=== PATIENT | male | born 1945 | race Caucasian/White ===

== ENCOUNTER → 2016-07-18 | Outpatient (CLI) | payer OTHER | LOC: MMPC 11:11 | PROVIDERS: ATTEND Internal Medicine | DX: E11.9 Type 2 diabetes mellitus without complications (principal); E78.5 Hyperlipidemia, unspecified; I10 Essential (primary) hypertension; L73.2 Hidradenitis suppurativa; E66.01 Morbid (severe) obesity due to excess calories; F17.210 Nicotine dependence, cigarettes, uncomplicated | CPT/HCPCS: 99213; G0463 ==

== ENCOUNTER → 2016-08-07 | Outpatient (CLI) | payer OTHER | LOC: MMPC 10:00 | PROVIDERS: ATTEND Orthopaedic Surgery | DX: M75.121 Complete rotator cuff tear or rupture of right shoulder, not specified as traumatic (principal); M75.41 Impingement syndrome of right shoulder; M19.011 Primary osteoarthritis, right shoulder; M75.21 Bicipital tendinitis, right shoulder | CPT/HCPCS: 99213; G0463 ==

== ENCOUNTER → 2016-10-05 | Outpatient (CLI) | payer OTHER | LOC: MMPC 10:00 | PROVIDERS: ATTEND Podiatrist Foot & Ankle Surgery | DX: E11.40 Type 2 diabetes mellitus with diabetic neuropathy, unspecified (principal); L60.3 Nail dystrophy; M77.41 Metatarsalgia, right foot; M77.42 Metatarsalgia, left foot; Q66.7 Congenital pes cavus; L84 Corns and callosities; E66.09 Other obesity due to excess calories; F17.210 Nicotine dependence, cigarettes, uncomplicated | CPT/HCPCS: 11055 ×2; 99212; G0463 ==

== ENCOUNTER → 2016-10-12 | Outpatient (CLI) | payer OTHER | LOC: MMPC 10:00 | PROVIDERS: ATTEND Orthopaedic Surgery | DX: M19.011 Primary osteoarthritis, right shoulder (principal); M75.21 Bicipital tendinitis, right shoulder; M75.121 Complete rotator cuff tear or rupture of right shoulder, not specified as traumatic; M75.41 Impingement syndrome of right shoulder | CPT/HCPCS: 99214; G0463 ==

== ENCOUNTER → 2016-10-16 | Outpatient (CLI) | payer OTHER | LOC: MMPC 11:11 | PROVIDERS: ATTEND Internal Medicine | DX: L73.2 Hidradenitis suppurativa (principal); E11.9 Type 2 diabetes mellitus without complications; I10 Essential (primary) hypertension; J44.9 Chronic obstructive pulmonary disease, unspecified; E66.01 Morbid (severe) obesity due to excess calories; M19.011 Primary osteoarthritis, right shoulder; R09.89 Other specified symptoms and signs involving the circulatory and respiratory systems | CPT/HCPCS: 99214; G0463 ==

== ENCOUNTER → 2016-10-30 | Outpatient (CLI) | payer OTHER ==
[2016-10-30 12:37] LABS: BASOPHILS # (AUTO) 0.17 10*3/UL; BASOPHILS % (AUTO) 1.3 % (0-1); EOSINOPHILS # (AUTO) 0.36 10*3/UL; EOSINOPHILS % (AUTO) 2.8 % (0-8); HEMATOCRIT 40.6 % (42.0-52.0); HEMOGLOBIN 13.5 g/dL (14.0-18.0); LYMPHOCYTES # (AUTO) 3.27 10*3/uL; MEAN CORPUSCULAR HEMOGLOBIN 29.6 PG (27-31); MEAN CORPUSCULAR HGB CONC 33.3 g/dL (33-37); MONOCYTES # (AUTO) 0.87 10*3/UL (0.3-0.8); MONOCYTES % (AUTO) 6.7 % (5-15); NEUTROPHILS # (AUTO) 8.19 10*3/UL; NEUTROPHILS % (AUTO) 63.6 % (50-80); RED BLOOD COUNT 4.56 10^6/uL (4.70-6.10)
[2016-10-30 12:44] LABS: PLATELET MORPHOLOGY COMMENT NORMAL MORPHOLOGY (NORM); RBC MORPHOLOGY COMMENT NORMAL MORPHOLOGY (NORM); WBC MORPHOLOGY COMMENT NORMAL MORPHOLOGY (NORM)
[2016-10-30 12:45] LABS: BILIRUBIN,URINE NEGATIVE (NEG); CLARITY,URINE CLEAR (CLEAR); COLOR,URINE YELLOW; GLUCOSE, URINE (UA) NEGATIVE (NEG); NITRATE,URINE NEGATIVE (NEG); OCCULT BLOOD,URINE NEGATIVE (NEG); PH,URINE 5.5 (5.0-8.5); PROTEIN,URINE NEGATIVE (NEG); UROBILINOGEN,URINE 0.2 mg/dL (0.2)
[2016-10-30 12:48] LABS: BLOOD UREA NITROGEN 16 mg/dL (7-22); BUN/CREATININE RATIO 17.77 (6-20); CALCIUM 9.3 mg/dL (8.7-10.7); EST GLOMERULAR FILTRATION > 60 (>60 ml/min/1.73m(2)); SERUM ALBUMIN 4.1 g/dL (3.5-4.8)
[2016-10-30 12:52] LABS: RBC,URINE 0-2 /hpf; URINE SAMPLE TYPE VOIDED SPECIMEN
[2016-10-30 12:52] LABS: HEMOGLOBIN A1C 5.51 % (4.2-6.0)
[2016-10-30 12:53] LABS: SQUAMOUS EPITHELIAL CELL,UR FEW; WBC,URINE 0-2
== END ==
LOC: MOB LAB 10:40
PROVIDERS: ATTEND Internal Medicine
DX: E11.9 Type 2 diabetes mellitus without complications (principal); J44.9 Chronic obstructive pulmonary disease, unspecified; I10 Essential (primary) hypertension; L73.2 Hidradenitis suppurativa; F17.200 Nicotine dependence, unspecified, uncomplicated
CPT/HCPCS: 36415; 80053; 81001; 83036; 85025

== ENCOUNTER → 2016-11-16 | Outpatient (CLI) | payer OTHER | LOC: MOB LAB 09:21 | PROVIDERS: ATTEND Internal Medicine | DX: D64.9 Anemia, unspecified (principal); L73.2 Hidradenitis suppurativa | CPT/HCPCS: 36415; 82728; 83540; 83550 ==

== ENCOUNTER → 2016-12-06 | Outpatient (CLI) | payer OTHER | LOC: MMPC 10:00 | PROVIDERS: ATTEND Podiatrist Foot & Ankle Surgery | DX: L84 Corns and callosities (principal); Q66.7 Congenital pes cavus; E66.8 Other obesity; E11.9 Type 2 diabetes mellitus without complications; F17.210 Nicotine dependence, cigarettes, uncomplicated | CPT/HCPCS: 11056 ×2; G0463 ==

== ENCOUNTER 2016-12-12 22:44 | Emergency (ER) | payer OTHER ==
[2016-12-12] MEDS ORDERED: ASPIRIN 81 MG (BABY) CHEWABLE TABLET PO ONE (22:57)
[2016-12-12] MEDS ORDERED: NORMAL SALINE 10 ML SYRINGE FLUSH IVP PRN (22:57)
--- NOTE | 2016-12-12 22:59 | EKG ---
[address] [address] Measurements Intervals [place] Rate: 80 P: 53 RI: 150 QRS: 99 QRSD: 110 T: 62 QT: 375 QTc: 411 Interpretive Statements SINUS RHYTHM BORDERLINE RIGHT AXIS DEVIATION [QRS AXIS > 90] INTERPRETATION BASED ON A DEFAULT AGE OF 40 YEARS No prior study available for comparison and no acute ST-T changes to suggest acute injury. Electronically Signed On 12-13-16 08:04:02 MDT by Daniele Bain MD [email or web address]
[2016-12-12 23:07] LABS: BASOPHILS # (AUTO) 0.18 10*3/UL; BASOPHILS % (AUTO) 1.1 % (0-1); EOSINOPHILS # (AUTO) 0.39 10*3/UL; EOSINOPHILS % (AUTO) 2.5 % (0-8); HEMATOCRIT 35.5 % (42.0-52.0); HEMOGLOBIN 11.8 g/dL (14.0-18.0); LYMPHOCYTES # (AUTO) 3.29 10*3/uL; MEAN CORPUSCULAR HEMOGLOBIN 30.1 PG (27-31); MEAN CORPUSCULAR HGB CONC 33.2 g/dL (33-37); MEAN CORPUSCULAR VOLUME 90.6 FL (80-90); MONOCYTES # (AUTO) 1.07 10*3/UL (0.3-0.8); MONOCYTES % (AUTO) 6.8 % (5-15); NEUTROPHILS # (AUTO) 10.72 10*3/UL; NEUTROPHILS % (AUTO) 68.3 % (50-80); RED BLOOD COUNT 3.92 10^6/uL (4.70-6.10)
[2016-12-12 23:11] LABS: PLATELET MORPHOLOGY COMMENT NORMAL MORPHOLOGY (NORM); RBC MORPHOLOGY COMMENT NORMAL MORPHOLOGY (NORM); WBC MORPHOLOGY COMMENT NORMAL MORPHOLOGY (NORM)
[2016-12-12 23:13] LABS: BLOOD UREA NITROGEN 13 mg/dL (7-22); BUN/CREATININE RATIO 11.81 (6-20); CALCIUM 9.3 mg/dL (8.7-10.7); EST GLOMERULAR FILTRATION > 60 (>60 ml/min/1.73m(2)); LIPASE 61 IU/L (23-300); MAGNESIUM 1.7 mg/dL (1.6-2.4); SERUM ALBUMIN 3.8 g/dL (3.5-4.8)
[2016-12-12 23:25] LABS: CREATINE KINASE MB 0.37 NG/ML (0.00-5.00); TROPONIN I < 0.012 ng/mL (< 0.040)
[2016-12-12 23:33] VITALS: TEMP 97.2
--- NOTE | 2016-12-12 23:44 | PDOC ---
Chest Pain HPI - General Chief Complaint: Chest Pain Stated Complaint: CHEST PAIN BELOW LEFT BRST SINCE 1300 Date Seen by Provider: 12/12/16 Time Seen by Provider: 22:45 Source: Patient Exam Limitations: POSITIVE: No limitations Treatment Prior to Arrival: REPORTS: None Nurse's Notes Reviewed & Considered: Yes - History of Present Illness Initial Comments: The patient is a 71-year-old male who presents to the emergency department with left-sided chest pain. He states that he woke up from a nap earlier this afternoon and was experiencing pain in his left lower chest. This pain does radiate through to his back on the left side. His pain is not worsened with taking a deep breath and he denies any increase shortness of breath, palpitation , diaphoresis, lightheadedness or any other associated symptoms. He reports that he had cardiac workup including cardiac catheterization approximately [address] Perkins in [place] at which time his vessels were clear. He does however have a history of hypertension and diabetes. He denies any recent illness. 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 He sees infectious disease for this and is chronically on antibiotics. He denies any prior history of blood clots. - Patient Home Medications Home Medications: Home Medications Blood Sugar Diagnostic [Freestyle Lite Strips] 1 each IN 2-3XD #100 strip Doxycycline Hyclate 1 cap PO DAILY cap 04/25/16 Hydrocodone/Acetaminophen [Lortab 5-325 Mg Tablet] 1 tab PO QHS #30 tab Epinephrine [Epipen] 0.3 mg IM PRN PRN #2 each 07/18/16 Aspirin 1 tab PO DAILY tab 10/12/16 Ibuprofen 1 tab PO TID PRN #90 tab 10/12/16 Citalopram Hydrobromide [Citalopram Hbr] 1 tab PO DAILY #90 tab 10/30/16 Duloxetine HCl 1 tab-cap PO QAM #90 cap 10/30/16 Duloxetine HCl [Cymbalta] 1 tab-cap PO QHS #90 cap 10/30/16 Exenatide Microspheres [Bydureon Pen] 1 each SUBCUT WEEKLY #12 unit 10/30/16 Gabapentin 1 tab-cap PO QHS #90 cap 10/30/16 Glipizide 1 tab-cap PO QD #90 tab 10/30/16 Lamotrigine 1 tab-cap ORAL QD #90 tab 10/30/16 Linagliptin/Metformin HCl [Jentadueto 2.5 Mg-1000 Mg Tab] 1 tab-cap PO BID #180 tab 10/30/16 Lisinopril 1 tab-cap ORAL QD #90 tab 10/30/16 Metoprolol Tartrate 1 tab-cap PO DAILY #90 tab 10/30/16 - Patient Allergies Allergies/Adverse Reactions: Allergies Allergy/AdvReac Type Severity Reaction Status Date / Time BEE STING Allergy Intermediate ANAPHLAXIS Uncoded 12/12/16 22:54 Past Medical History - heen HEENT History: Denies History Cardiovascular History: Hypertension, CHF, Hyperlipidemia Respiratory History: Asthma Additional Respiratory History: NO PROBLEMS FOR 2-3 YEARS Gastrointestinal History: GERD, Hiatal Hernia Genitourinary History: Denies History Endocrine History: Type 2 Diabetes (oral) Musculoskeletal History: Arthritis Additional Musculoskeletal History: ONGOING PROBLEM WITH SKIN INFECTIONS AT GROIN AND AXILLA. SEEN BY Candis MOORE. WAS SEEN IN THE OFFICE ON 10/12/[address] PARISH AND AXILLA AT THIS TIME IS CLEARED UP WITH NO SIGNS OF INFECTION. DESPITE DR BEDOLLA NOTE FROM 10/16/16 STATING SHE DOESNT FEEL PATIENT SHOULD PROCEED WITH SX DUE TO THE ACTIVE INFECTION IN GROIN AREA, DR PARISH STATED HE WAS COMFORTABLE PROCEEDING SINCE AXILLA WAS CLEAR AND PATIENT BEING ON ORAL ABX. SB Neurological History: Other (please comment) Additional Neurological History: HAS MYASTHENIA GRAVIS Blood Disorders: Denies History Psychiatric History: Depression, Anxiety Disorders History of Sexually Transmitted Diseases: No Male Reproductive History: Denies History Cancer History: Other (please comment) Cancer Treatment / Date(s) of Treatment: 2003 In Past Year Been Physically Harmed or Verbally Threatened: No History of MDRO: No History of Other Communicable Diseases: No Tobacco Use: Current Every Day Smoker Alcohol Use: None Substance Use Type: None Previous Surgical History: Yes Type / Date of Surgery: TONSILLECTOMY/ SKIN CA/ RIGHT ANKLE X 2/ MULTIPLE CYSTS EXCISED FROM GROIN FRANK AREA/ RECTAL CA EXCISED/ CORONARY ANGIOGRAM Anesthesia Reactions: No Significant Family History: No pertinent family hx Past Medical History Reviewed: Reviewed - No Changes ROS - Limitations ROS Limitations: No Limitations Constitution: DENIES: Chills, Fever Cardiovascular: REPORTS: Chest Pain, Blood Pressure Problem. DENIES: Heart Racing, Heart Palpitations, Edema Respiratory: DENIES: Shortness Of Breath Neurological: REPORTS: Denies Neuro Symptoms Gastrointestinal: REPORTS: Denies GI Symptoms Endocrine: REPORTS: Fatigue (For about a month) Musculoskeletal: DENIES: Calf Pain Eyes: REPORTS: Denies Symptoms ENT: REPORTS: Denies Symptoms Chest Pain PE - General Appearance General Appearance: REPORTS: Alert, Cooperative, No Acute Distress - HEENT HEENT: POSITIVE: Head Inspection Nml, Eyes Inspection Nml, Ears Inspection Nml, Pharynx Inspect. Nml - Neck Neck: REPORTS: Normal Inspection - Respiratory Respiratory: REPORTS: No Respiratory Distress, Breath Sounds Normal - Cardiovascular Cardiovascular: REPORTS: Regular Rate and Rhythm, Heart Sounds Normal Peripheral Pulses: Dorsalis-pedis (R): 2+, Dorsalis-pedis (L): 2+ - Abdomen Abdomen: Soft: (All Quadrants), Denies Tenderness: (All Quadrants), No Distention: (All Quadrants) - Skin Skin: REPORTS: Intact, No Rash - Extremities Extremity: Normal ROM: (All Extremities), Normal Inspection: (All Extremities) - Neurological / Psychological Neurological: POSITIVE: Oriented X3, Motor Normal, Sensation Normal Chest Pain Progress - Results Reviewed by me Lab Results Reviewed: Yes Lab Results:: Laboratory Results 12/12/16 Range/Units 22:57 WBC 15.70 H (4.8-10.8) 10^3/uL RBC 3.92 L (4.70-6.10) 10^6/uL Hgb 11.8 L (14.0-18.0) g/dL Hct 35.5 L (42.0-52.0) % MCV 90.6 H (80-90) FL MCH 30.1 (27-31) PG MCHC 33.2 (33-37) g/dL RDW Std Deviation 47.2 (39-50) fL RDW Coeff of Vu 14.8 H (11.5-14.5) % Plt Count 328 (140-350) 10*3/uL MPV 9.0 (7.4-12.2) FL Immature Gran % (Auto) 0.3 (0-5) % Neut % (Auto) 68.3 (50-80) % Lymph % (Auto) 21.0 (10-50) % [place] % (Auto) 6.8 (5-15) % Eos % (Auto) 2.5 (0-8) % Baso % (Auto) 1.1 H (0-1) % Immature Gran # (Auto) 0.05 10*3/UL Neut # (Auto) 10.72 10*3/UL Lymph # (Auto) 3.29 10*3/uL [place] # (Auto) 1.07 H (0.3-0.8) 10*3/UL Eos # (Auto) 0.39 10*3/UL Baso # (Auto) 0.18 10*3/UL WBC Morphology Comment Normal morphology (NORM) Plt Morphology Comment Normal morphology (NORM) RBC Morph Comment Normal morphology (NORM) D-Dimer 0.90 H (0.00-0.59) mg/L Sodium 137 (135-145) meq/L Potassium 4.3 (3.8-5.2) meq/L Chloride 104 (98-112) meq/L Carbon Dioxide 23 (23-33) meq/L Anion Gap 10 (5-20) BUN 13 (7-22) mg/dL Creatinine 1.1 (0.70-1.50) mg/dL Estimated GFR > 60 (>60 ml/min/1.73m(2)) BUN/Creatinine Ratio 11.81 (6-20) Glucose 110 (78-110) mg/dL Calculated Osmolality 284.0 (267-292) mOsm/kg Calcium 9.3 (8.7-10.7) mg/dL Magnesium 1.7 (1.6-2.4) mg/dL Total Bilirubin 0.3 (0.3-1.2) mg/dL AST 13 L (21-57) IU/L ALT 21 (21-72) IU/L Alkaline Phosphatase 108 (38-126) IU/L CK-MB (CK-2) 0.37 (0.00-5.00) NG/ML Troponin I < 0.012 (< 0.040) ng/mL Total Protein 7.0 (6.1-8.0) g/dL Albumin 3.8 (3.5-4.8) g/dL Globulin 3.2 (2.50-4.10) g/dL Albumin/Globulin Ratio 1.10 L (1.3-2.0) mg/g Amylase 53 (30-110) U/L Lipase 61 (23-300) IU/L EKG Interpreted/Reviewed By Me:: Yes EKG Interpretation:: POSITIVE: Normal Sinus Rhythm, Normal Rate, Normal QRS, Normal ST/T - Patient's Progress MDM / ED Course: The patient's initial EKG showed a normal sinus rhythm with no obvious acute changes. He was given aspirin per chest pain protocol. Initial blood work reveals an elevated d-dimer at 0.92. His initial troponin is normal. CTA of the chest was negative for PE or any other acute findings per radiologist. These findings were discussed with the patient and his . The patient does have multiple risk factors for coronary artery disease. It was advised that he should be admitted to the hospital for further cardiac testing. By the time his CTA was done the patient's pain had resolved and he stated that he would rather go home and follow-up with his primary care provider as an outpatient. He is advised return to the emergency room if he develops any record pain, worsening or change in symptoms. - Consult Counseled: POSITIVE: Patient, Family, RE: Lab Results, RE: Radiology Results, RE : DX, RE: Need for F/U Patient Care Time - Estimated PCT Patient Care Time (In Minutes): 40 Vital Signs - Recent Vital Signs Vital Signs: Vital Signs (Last 8 hours) Temp Pulse Pulse Pulse Resp BP Pulse Ox 12/12/16 22:47 97.2 F 77 79 77 22 157/97 92 - VS Reviewed Vital Signs Reviewed: Yes Discharge Clinical Impression: Chest pain Discharge Disposition: Discharged to Home Condition: Fair Patient Instructions Given at Discharge: Chest Pain (ED) Additional Instructions: The testing done here in the emergency department revealed an EKG that did not show any obvious sign of heart attack. Your blood work did not show any sign of heart attack or heart damage. The CAT scan did not show any evidence of aneurysm or blood clot. You do have multiple risk factors for heart disease and it was recommended that she be admitted to the hospital for further evaluation and stress testing. You have elected not to do that at this time. I would recommend that you follow-up with your primary care provider to discuss any further evaluation. Certainly return to the emergency room if you have any recurrent chest pain, any worsening or change in symptoms. Follow Up With: MARYJANE CAREY [Primary Care Provider] -
--- NOTE | 2016-12-13 00:11 | DI ---
HISTORY: Chest pain. COMPARISON: None available. FINDINGS: The heart is normal in size, allowing for technique. The mediastinal contour is within no rmal limits. The pulmonary vascularity is within normal limits. The trachea is unremarkable. There is no evidence of focal consolidation, pleural effusion or pneumothorax on this single view. No acut e skeletal pathology is seen. IMPRESSION: 1. No acute pulmonary pathology on this single frontal view of the chest. NOTIFICATION: The above findings were phoned to Rosa Downs in the ER Department on 12/13/2016 at 3: 06am EST.
--- NOTE | 2016-12-13 00:18 | DI ---
HISTORY: Left-sided chest pain. Elevated d-dimer. COMPARISON: None available. TECHNIQUE: CTA of the chest was performed with contrast and submitted for interpretation. FINDINGS: There is no evidence of pulmonary embolus. The main pulmonary artery is enlarged measuring 4 cm in caliber. The heart is normal in size. The aorta is normal in caliber. The central airway is patent. There is mild centrilobular emphysema. There is no evidence of focal consolidation, ple ural effusion or pneumothorax. A calcified granuloma is noted in the left apex. No acute skeletal p athology is seen. A 3.2 cm probable sebaceous cyst is noted in the right posterior superficial chest wall fat. The imaged portions of the upper abdomen are grossly unremarkable. IMPRESSION: 1. No pulmonary embolus. Probable pulmonary hypertension. 2. No acute pulmonary pathology. Emphysema. 3. Incidental note is made of posterior superficial chest wall probable sebaceous cyst. NOTIFICATION: The above findings were phoned to Rosa Downs in the ER Department on 12/13/2016 at 3: 06am EST.
[2016-12-13 01:07] VITALS: RESP 20
== END 2016-12-13 00:39 | disposition home or self-care (01) ==
LOC: ER 22:44
DX: R07.9 Chest pain, unspecified (principal); E11.9 Type 2 diabetes mellitus without complications; I10 Essential (primary) hypertension; E78.5 Hyperlipidemia, unspecified; R53.83 Other fatigue; R79.1 Abnormal coagulation profile
CPT/HCPCS: 71010; 71275; 80053; 82150; 82553; 83690; 83735; 84484; 85025; 85379; 93005; 93010; 99284

== ENCOUNTER 2017-10-02 21:10 | Inpatient (IN) ==
[2017-10-02] MEDS ORDERED: Sodium Chloride 0.9% 1,000 ML PRIMARY IV ONE (21:28)
[2017-10-02] MEDS ORDERED: ONDANSETRON 4 MG/2 ML VIAL IVP ONE (21:28)
[2017-10-02] MEDS ORDERED: MORPHINE SULFATE 2 MG/1 ML IVP ONE (21:28)
--- NOTE | 2017-10-02 21:42 | PDOC ---
General Adult HPI - General Chief Complaint: Integumentary Stated Complaint: GROIN EDEMA WITH WOUND Date Seen by Provider: 10/02/17 Time Seen by Provider: 21:25 Source: POSITIVE: Patient Exam Limitations: POSITIVE: No limitations Nurse's Notes Reviewed & Considered: Yes - History of Present Illness Initial Comment: The patient is a 72-year-old male who presents to the emergency department with increased pain and swelling around his genitals. He has a history of hidradenitis with history of recurrent abscesses in the perineal and scrotal region. He has followed up with infectious disease and is currently taking doxycycline 100 mg twice a day. For the past 3 or 4 days he's developed increased pain and swelling behind the scrotum. He now has swelling that extends over his entire genitals and into the groin on both sides. He does report increased pain as well. He is still able to urinate at this point. He denies any subjective fevers or chills. He is diabetic and states that his blood sugars have been reasonable. Have you received a tetanus shot in the past 10 years?: Unknown - Patient Home Medications Home Medications: Home Medications Blood Sugar Diagnostic [Freestyle Lite Strips] 1 ea IN 2-3XD #100 strip Aspirin 1 tab PO DAILY tab 10/12/16 citalopram 40 mg tablet 40 mg PO DAILY #90 tab 01/17/17 duloxetine 30 mg capsule,delayed release 30 mg PO QAM #90 cap 01/17/17 duloxetine 60 mg capsule,delayed release 60 mg PO QHS #90 cap 01/17/17 epinephrine 0.3 mg/0.3 mL injection, auto-injector 0.3 mg IM PRN PRN #2 ea 01/17 exenatide ER 2 mg/0.65 mL subcutaneous pen injector 2 mg SUBCUT WEEKLY #12 unit 01/17/17 gabapentin 300 mg capsule 300 mg PO QHS #90 cap 01/17/17 glipizide 5 mg tablet 5 mg PO QD #90 tab 01/17/17 lamotrigine 200 mg tablet 200 mg PO QD #90 tab 01/17/17 linagliptin 2.5 mg-metformin 1,000 mg tablet 1 tab PO BID #180 tab 01/17/17 lisinopril 40 mg tablet 40 mg PO QD #90 tab 01/17/17 metoprolol tartrate 100 mg tablet 100 mg PO DAILY #90 tab 01/17/17 fluticasone 50 mcg/actuation nasal spray,suspension 2 spray INASL QDAY #16 g ipratropium 20 mcg-albuterol 100 mcg/actuation mist for inhalation 1 puff INH QID #4 g 03/19/17 budesonide-formoterol HFA 160 mcg-4.5 mcg/actuation aerosol inhaler 2 puff INH BID #10.2 g 05/02/17 isosorbide mononitrate ER 120 mg tablet,extended release 24 hr 120 mg PO QAM # 90 tab 05/02/17 simvastatin 20 mg tablet 20 mg PO QPM #90 tab 05/02/17 ibuprofen 800 mg tablet 800 mg PO TID PRN #90 tab 07/10/17 doxycycline hyclate 100 mg capsule 100 mg PO QDAY #90 cap 09/26/17 - Patient Allergies Allergies/Adverse Reactions: Allergies 3 Allergy/AdvReac Type Severity Reaction Status Date / Time bee venom protein (honey bee) Allergy Severe Anaphylaxis Verified 10/02/17 21:13 Past Medical History - heen HEENT History: Denies History Cardiovascular History: Hypertension, CHF, Hyperlipidemia Respiratory History: COPD, Emphysema Additional Respiratory History: NO PROBLEMS FOR 2-3 YEARS Gastrointestinal History: GERD, Hiatal Hernia Genitourinary History: Denies History Endocrine History: Type 2 Diabetes (oral) Musculoskeletal History: Arthritis Additional Musculoskeletal History: ONGOING PROBLEM WITH SKIN INFECTIONS AT GROIN AND AXILLA. SEEN BY Candis JAIME [place]. Neurological History: Denies History Additional Neurological History: HAS MYASTHENIA GRAVIS Blood Disorders: Denies History Psychiatric History: Depression, Anxiety Disorders History of Sexually Transmitted Diseases: No Cancer History: Skin, Other (please comment) Cancer Treatment / Date(s) of Treatment: 2004 REMOVED FROM AREAS In Past Year Been Physically Harmed or Verbally Threatened: No History of MDRO: No History of Other Communicable Diseases: No Tobacco Use: Current Every Day Smoker Alcohol Use: None In the Past 12 Months, Have Used or Abuse Any Substance: None Previous Surgical History: Yes Type / Date of Surgery: TONSILLECTOMY/ SKIN CA/ RIGHT ANKLE X 2/ MULTIPLE CYSTS EXCISED FROM GROIN FRANK AREA/ RECTAL CA EXCISED/ CORONARY ANGIOGRAM Anesthesia Reactions: No Significant Family History: No pertinent family hx Past Medical History Reviewed: Reviewed - No Changes ROS - Limitations ROS Limitations: No Limitations Constitution: DENIES: Chills, Fever Cardiovascular: REPORTS: Denies Cardiac Symptoms Respiratory: REPORTS: Denies Resp Symptoms Neurological: REPORTS: Denies Neuro Symptoms Gastrointestinal: DENIES: Abdominal Pain, Nausea, Vomitting Musculoskeletal: REPORTS: Denies MS Symptoms Genitourinary: DENIES: Difficulty Urinating Eyes: REPORTS: Denies Symptoms ENT: REPORTS: Denies Symptoms General Adult Exam - General Appearance General Appearance: POSITIVE: Alert, Cooperative, No Acute Distress - HEENT HEENT: POSITIVE: Head Inspection Nml - Respiratory Respiratory: POSITIVE: No Respiratory Distress, Breath Sounds Normal - Cardiovascular Cardiovascular: POSITIVE: Regular Rate & Rhythm, No Murmur Peripheral Pulses: Dorsalis-pedis (R): 2+, Dorsalis-pedis (L): 2+ - Abdomen Abdomen: Soft: (All Quadrants), Denies Tenderness: (All Quadrants), No Distention: (All Quadrants) - Skin Skin: POSITIVE: Other (Examination of the genitalia reveals marked swelling to the scrotum and penis, the head of the penis is retracted into the soft tissue swelling, there is erythema and induration to the genitals extending into the groin region, there is a firm area of swelling posterior to the scrotum in the perineal region, there is no obvious drainage currently, he does have scarring from previous infections in the region) - Extremities Extremity: Normal Inspection: (All Extremities) - Neurological / Psychological Neurological: POSITIVE: Other (No focal neurologic deficits) General Adult Progress - Results Reviewed by me Xrays/CTs/US Reviewed by me: Yes Radiology Findings: Ultrasound of the scrotum and perineum shows soft tissue edema and a complex fluid accumulation measuring approximately 1 cm in the perineal region Lab Results Reviewed by Me: Yes CBC and BMP: 10/02/17 21:40 10/02/17 21:40 - Patient's Progress MDM / ED Course: Blood cultures and lactate were drawn with initial IV start. His white count is elevated at 16.7. His white count in June was 15,000. His lactate is normal. CRP is mildly elevated at 2.9. His blood sugar is normal. Scrotal ultrasound reveals soft tissue edema as well as a complex fluid accumulation in the perineal area measuring approximately 1 cm. I did discuss the patient with Dr. Cano who is on-call for infectious disease at [facility]. He thought that the patient would resolve with IV antibiotics. He recommended Unasyn 3 g every 8 hours. He thought that the patient could be treated initially here and [place] and transferred if clinical worsening or failure to improve. He did not think surgical intervention would be necessary at this point. I did discuss these findings and recommendation with the patient and his . They were in agreement with this treatment plan. Dr. Bahena has agreed to admit the patient. - Consult Counseled: POSITIVE: Patient, Family, RE: Lab Results, RE: Radiology Results, RE : DX, RE: Need for F/U Patient Care Time - Estimated PCT Patient Care Time (In Minutes): 35 Vital Signs - Recent Vital Signs Vital Signs: Vital Signs (Last 8 hours) Temp Pulse Resp BP Pulse Ox 10/02/17 21:22 98 F 89 18 110/71 94 - VS Reviewed Vital Signs Reviewed: Yes Discharge Clinical Impression: Hidradenitis suppurativa, Diabetes mellitus, type 2, Cellulitis, scrotum, Perineal abscess Condition: Fair Follow Up With: MARYJANE CAREY [Primary Care Provider] - Date Decision to Admit to Inpatient: 10/02/17 Time Decision to Admit to Inpatient: 23:10
[2017-10-02 22:03] LABS: Hemoglobin [HGB] 13.3 g/dL (14.0-18.0); MEAN CORPUSCULAR HEMOGLOBIN 30.1 PG (27-31); MEAN CORPUSCULAR HGB CONC 34.1 g/dL (33-37); MEAN CORPUSCULAR VOLUME 88.2 FL (80-90); MEAN PLATELET VOLUME 9.5 FL (7.4-12.2); RED BLOOD COUNT 4.42 10^6/uL (4.70-6.10)
[2017-10-02 22:15] LABS: BLOOD UREA NITROGEN 33 mg/dL (7-22); BUN/CREATININE RATIO 25.38 (6-20); SERUM ALBUMIN 4.1 g/dL (3.5-4.8)
[2017-10-02 22:24] LABS: BAND NEUTROPHILS % 0 % (0-10); MONOCYTES % (MANUAL) 7 % (0-12); NEUTROPHILS % (MANUAL) 71 % (50-80); PLATELET MORPHOLOGY COMMENT NORMAL MORPHOLOGY (NORM); RBC MORPHOLOGY COMMENT NORMAL MORPHOLOGY (NORM); WBC MORPHOLOGY COMMENT NORMAL MORPHOLOGY (NORM)
[2017-10-02 22:25] LABS: BASOPHILS % (MANUAL) 0 % (0-1); EOSINOPHILS % (MANUAL) 2 % (0-8)
[2017-10-02] MEDS ORDERED: Ampicillin/Sulbactam Inj 3 GM in Sodium Chloride 0.9% 100 ML IV ONE (22:52)
--- NOTE | 2017-10-02 23:30 | DI ---
EXAM: US Scrotum CLINICAL HISTORY: Swelling, evaluate for abscess TECHNIQUE: Real-time ultrasound of the scrotum with color Doppler and image documentation. COMPARISON: 07/06/2017 FINDINGS: Right testicle: Unremarkable. Normal size, echogenicity, and vascular flow. No focal testicular lesion. Left testicle: Unremarkable. Normal size, echogenicity, and vascular flow. No focal testicular lesion. Epididymides: 8 mm complex right epididymal cyst. Scrotum: Nonspecific scrotal thickening to be seen in the setting of cellulitis. 1.5 cm irregular hypoechoic complex cystic structure in the posterior scrotum with peripheral hyperemia may represent an abscess, in the appropriate clinical setting. IMPRESSION: Nonspecific scrotal thickening can be seen in the setting of cellulitis. 1.5 cm suspected posterior scrotal abscess.
[2017-10-02] MEDS ORDERED: ACETAMINOPHEN 325 MG TABLET PO PRN (23:32)
[2017-10-02] MEDS ORDERED: LIDOCAINE W/ SODIUM BICARB 0.5 ML SYR SUBD PRN (23:32)
[2017-10-02] MEDS ORDERED: CALCIUM CARBONATE 500 MG (TUMS) CHEWABLE TABLET PO PRN (23:32)
[2017-10-02] MEDS ORDERED: Simvastatin Tab 20 MG TAB PO SCH (23:32)
[2017-10-02] MEDS ORDERED: DULOXETINE 60 MG CAPSULE PO SCH (23:32)
[2017-10-02] MEDS ORDERED: GABAPENTIN 300 MG CAPSULE PO SCH (23:32)
[2017-10-02] MEDS ORDERED: EPINEPHrine 0.3 MG/0.3 ML AUTO-INJECTOR IM PRN (23:32)
[2017-10-02] MEDS ORDERED: IBUPROFEN 800 MG TABLET PO PRN (23:32)
[2017-10-02] MEDS ORDERED: ONDANSETRON 4 MG/2 ML VIAL IVP PRN (23:32)
[2017-10-02] MEDS ORDERED: MORPHINE SULFATE 2 MG/1 ML IVP PRN (23:32)
[2017-10-02] MEDS ORDERED: DOCUSATE 100 MG CAPSULE PO PRN (23:32)
[2017-10-03] MEDS ORDERED: GABAPENTIN 300 MG CAPSULE PO ONE (00:06)
[2017-10-03] MEDS ORDERED: DULOXETINE 60 MG CAPSULE PO ONE (00:06)
[2017-10-03] MEDS ORDERED: Simvastatin Tab 20 MG TAB PO ONE (00:06)
[2017-10-03] MEDS: Sodium Chloride 0.9% 1,000 ML PRIMARY IV SCH ×2 (00:11→09:14)
[2017-10-03 05:00] LABS: BASOPHILS # (AUTO) 0.07 10*3/UL; BASOPHILS % (AUTO) 0.6 % (0-1); EOSINOPHILS # (AUTO) 0.37 10*3/UL; EOSINOPHILS % (AUTO) 3.1 % (0-8); Hematocrit [HCT] 36.4 % (42.0-52.0); Hemoglobin [HGB] 11.9 g/dL (14.0-18.0); LYMPHOCYTES # (AUTO) 2.92 10*3/uL; MEAN CORPUSCULAR HEMOGLOBIN 29.1 PG (27-31); MEAN CORPUSCULAR HGB CONC 32.7 g/dL (33-37); MEAN PLATELET VOLUME 9.3 FL (7.4-12.2); MONOCYTES # (AUTO) 0.91 10*3/UL (0.3-0.8); MONOCYTES % (AUTO) 7.6 % (5-15); NEUTROPHILS # (AUTO) 7.75 10*3/UL; NEUTROPHILS % (AUTO) 64.3 % (50-80); RED BLOOD COUNT 4.09 10^6/uL (4.70-6.10)
[2017-10-03 05:13] LABS: PLATELET MORPHOLOGY COMMENT NORMAL MORPHOLOGY (NORM); RBC MORPHOLOGY COMMENT NORMAL MORPHOLOGY (NORM); WBC MORPHOLOGY COMMENT NORMAL MORPHOLOGY (NORM)
[2017-10-03 06:02] LABS: BLOOD UREA NITROGEN 31 mg/dL (7-22); BUN/CREATININE RATIO 25.83 (6-20); SERUM ALBUMIN 3.2 g/dL (3.5-4.8)
[2017-10-03] MEDS ORDERED: Non-Formulary Drug (Budesonide/Formoterol Fumarate [Symbicort 160-4.5 Mcg Inhaler] 2 PUFF) INH SCH (07:00)
[2017-10-03] MEDS ORDERED: AMPICILLIN/SULBACTAM 3 GM VIAL IV ONE (08:38)
[2017-10-03] MEDS ORDERED: ASPIRIN 81 MG (BABY) CHEWABLE TABLET ONE (08:38)
[2017-10-03] MEDS ORDERED: GlipiZIDE Tab 5 MG TABLET PO ONE (08:41)
[2017-10-03] MEDS ORDERED: CITALOPRAM 20 MG TABLET PO ONE (08:41)
[2017-10-03] MEDS ORDERED: Metoprolol TARTRATE Tab 50 MG TAB PO ONE (08:41)
[2017-10-03] MEDS ORDERED: lamoTRIgine 100 MG TABLET PO ONE (08:42)
[2017-10-03] MEDS ORDERED: ISOSORBIDE MONONITRATE 30 MG SR 24H TABLET PO ONE (08:42)
[2017-10-03] MEDS ORDERED: Sodium Chloride 0.9% 100 ML IV ONE (08:43)
[2017-10-03] MEDS ORDERED: ENOXAPARIN SODIUM 40 MG/0.4 ML SYRINGE SUBCUT ONE (08:43)
[2017-10-03] MEDS ORDERED: LISINOPRIL 20 MG TABLET PO ONE (08:45)
[2017-10-03] MEDS: Ampicillin/Sulbactam Inj 3 GM in Sodium Chloride 0.9% 100 ML IV SCH ×3 (08:55)
[2017-10-03] MEDS ORDERED: LINAGLIPTIN PO SCH (09:00)
[2017-10-03] MEDS ORDERED: CITALOPRAM 20 MG TABLET PO SCH (09:00)
[2017-10-03] MEDS ORDERED: METFORMIN HCL PO SCH (09:00)
[2017-10-03] MEDS ORDERED: ASPIRIN 81 MG (BABY) CHEWABLE TABLET PO SCH (09:00)
[2017-10-03] MEDS ORDERED: GlipiZIDE Tab 5 MG TABLET PO SCH (09:00)
[2017-10-03] MEDS ORDERED: ISOSORBIDE MONONITRATE 30 MG SR 24H TABLET PO SCH (09:00)
[2017-10-03] MEDS ORDERED: lamoTRIgine 100 MG TABLET PO SCH (09:00)
[2017-10-03] MEDS ORDERED: ENOXAPARIN SODIUM 40 MG/0.4 ML SYRINGE SUBCUT SCH (09:00)
[2017-10-03] MEDS ORDERED: ENOXAPARIN SODIUM 30 MG/0.3 ML SYRINGE SUBCUT SCH (09:00)
[2017-10-03] MEDS ORDERED: LISINOPRIL 20 MG TABLET PO SCH (09:00)
[2017-10-03] MEDS ORDERED: Metoprolol TARTRATE Tab 50 MG TAB PO SCH (09:00)
[2017-10-03] MEDS ORDERED: IPRATROPIUM INH SCH (11:00)
[2017-10-03] MEDS ORDERED: ALBUTEROL INH SCH (11:00)
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
[2017-10-03 12:48] VITALS: RESP 18; TEMP 97.8; O2SAT 90
--- NOTE | 2017-10-03 12:50 | DCSUMMARY ---
Hospitalization Summary Admit Date: 10/03/2017 Discharge Date: 10/03/17 Primary Diagnosis:: scrotal abscess Secondary Diagnosis:: Hidradenitis suppurativa Hospital Course: This very pleasant 72-year-old male that was admitted late over the midnight hour last night, and was given 2 doses of Unasyn for a scrotal abscess in the setting of hidradenitis. Given his recurrent episodes of abscesses, failure by mouth antibiotics, and location of this abscess posteriorly in the scrotum, I felt it would be much more beneficial for him to be continued on IV antibiotics and the presence of an infectious disease specialist possibly urologist, and hospitalist at a referral center. I spoke with the patient and his about this and they would be willing to go by private car and I spoke with the hospitalist infectious disease specialist at [facility] and they were fine with this. The patient was discharged without any incident. See documentation earlier today for physical exam. Assessment and Plan: 1. As per discharge assessments noted 2. Disposition: Patient is discharged to [facility] 3. Condition on discharge, stable and improved. 4. Diet: regular diet 5. Activities: resume normal activities 6. Follow-Up: 1. Dr. Clark one week following discharge from [facility]. 2. 7. Medications at the Time of Discharge: Active Medications Generic Name Dose Route Start Last Admin Trade Name Freq PRN Reason Stop Dose Admin Acetaminophen 650 mg 10/02/17 23:32 Tylenol PO Q6H PRN Pain or Fever Aspirin 81 mg 10/03/17 09:00 10/03/17 08:58 Aspirin Chewable Tab PO 81 mg DAILY XU Administration Calcium Carbonate 1 - 2 tab 10/02/17 23:32 Tums PO Q6H PRN Heartburn Citalopram Hydrobromide 40 mg 10/03/17 09:00 10/03/17 08:57 Celexa PO 40 mg DAILY XU Administration Docusate Sodium 100 mg 10/02/17 23:32 Colace PO BID PRN Constipation Duloxetine HCl 60 mg 10/02/17 23:32 10/03/17 00:11 Cymbalta PO 60 mg BEDTIME XU Administration Enoxaparin Sodium 40 mg 10/03/17 09:00 10/03/17 08:59 Lovenox Inj SUBCUT 40 mg DAILY XU Administration Epinephrine HCl 0.3 mg 10/02/17 23:32 Epipen Inj IM ASDIR PRN anaphylaxis Gabapentin 300 mg 10/02/17 23:32 10/03/17 00:11 Neurontin PO 300 mg BEDTIME XU Administration Glipizide 5 mg 10/03/17 09:00 10/03/17 08:58 Glucotrol Tab PO 5 mg DAILY XU Administration Ampicillin Sodium/Sulbactam 100 mls @ 200 mls/hr 10/02/17 23:30 10/03/17 08: 55 Sodium 3 gm/ Sodium Chloride IV 200 mls/hr Q8H XU Administration Sodium Chloride 1,000 mls @ 125 mls/hr 10/02/17 23:32 10/03/17 09:14 Normal Saline PRIMARY IV 125 mls/hr .Q8H XU Administration Sodium Chloride 25 mls @ 200 mls/hr 10/02/17 23:32 Normal Saline 0.9% IV .Post Infusion PRN No Primary IV for Flush ONLY Ibuprofen 800 mg 10/02/17 23:32 Motrin PO TID PRN pain Isosorbide Mononitrate 120 mg 10/03/17 09:00 10/03/17 08:58 Imdur PO 120 mg DAILY [facility] Administration Lamotrigine 200 mg 10/03/17 09:00 10/03/17 08:58 Lamictal Tab PO 200 mg DAILY [facility] Administration Lidocaine HCl 0.5 ml 10/02/17 23:32 Lidocaine Buffered Inj SUBD ONCE PRN IV Starts Lisinopril 40 mg 10/03/17 09:00 10/03/17 08:58 Prinivil PO 40 mg DAILY [facility] Administration Metoprolol Tartrate 100 mg 10/03/17 09:00 10/03/17 08:57 Lopressor Tab PO 100 mg DAILY [facility] Administration Morphine Sulfate 2 mg 10/02/17 23:32 Morphine Inj IVP Q2H PRN Pain Non-Formulary Medication 2 puff 10/03/17 07:00 Budesonide/Formoterol Fumarate [Symbicort 160-4.5 Mcg Inhaler] INH RTBID [facility] Non-Formulary Medication 2 mg 10/09/17 09:00 Exenatide Microspheres [Bydureon Pen] SUBCUT WEEKLY [facility] Non-Formulary Drug ( 1 puff 10/03/17 11:00 Ipratropium/ INH Albuterol 20mcg/ RTQID XU 100mcg Inhaler) Non-Formulary Medication 1 tab 10/03/17 09:00 Linagliptin/Metformin Hcl [Jentadueto 2.5 Mg-1000 Mg Tab] PO BID XU Ondansetron HCl 4 mg 10/02/17 23:32 Zofran Inj IVP Q4H PRN NAUSEA / VOMITING Simvastatin 20 mg 10/02/17 23:32 10/03/17 00:11 Zocor PO 20 mg BEDTIME XU Administration 8. Time, care, counseling and coordination of care for this discharge is greater than 30 minutes. Exam - Vitals Vital Signs: Vital Signs Temperature 97.2 F Temperature Source Temporal Artery Scan Pulse Rate [Pulse Oximeter] 86 Pulse Rate 84 Respiratory Rate 19 Blood Pressure [Left Arm] 138/68 Blood Pressure 127/48 Pulse Ox 94 Oxygen Flow Rate 1 Oxygen Delivery Method Nasal Cannula Height 5 ft 11 in Weight 292 lb 3.2 oz Data Peritnent Studies: Laboratory Results 10/02/17 10/02/17 10/02/17 Range/Units 21:40 21:40 21:40 WBC 16.37 H (4.8-10.8) 10^3/uL RBC 4.42 L (4.70-6.10) 10^6/uL Hgb 13.3 L (14.0-18.0) g/dL Hct 39.0 L (42.0-52.0) % MCV 88.2 (80-90) FL MCH 30.1 (27-31) PG MCHC 34.1 (33-37) g/dL RDW Std Deviation 46.9 (39-50) fL RDW Coeff of Vu 14.8 H (11.5-14.5) % Plt Count 321 (140-350) 10*3/uL MPV 9.5 (7.4-12.2) FL Immature Gran % (Auto) (0-5) % Neut % (Auto) (50-80) % Lymph % (Auto) (10-50) % [place] % (Auto) (5-15) % Eos % (Auto) (0-8) % Baso % (Auto) (0-1) % Immature Gran # (Auto) 10*3/UL Neut # (Auto) 10*3/UL Lymph # (Auto) 10*3/uL [place] # (Auto) (0.3-0.8) 10*3/UL Eos # (Auto) 10*3/UL Baso # (Auto) 10*3/UL Neutrophils % (Manual) 71 (50-80) % Band Neutrophils % 0 (0-10) % Lymphocytes % (Manual) 20 (10-50) % Monocytes % (Manual) 7 (0-12) % Eosinophils % (Manual) 2 (0-8) % Basophils % (Manual) 0 (0-1) % Metamyelocytes % Not Reportable Myelocytes % Not Reportable Promyelocytes % Not Reportable Blast Cells Not Reportable WBC Morphology Comment Normal morphology (NORM) Plt Morphology Comment Normal morphology (NORM) RBC Morph Comment Normal morphology (NORM) Sodium 133 L (135-145) meq/L Potassium 4.8 (3.8-5.2) meq/L Chloride 101 (98-112) meq/L Carbon Dioxide 20 L (23-33) meq/L Anion Gap 12 (5-20) BUN 33 H (7-22) mg/dL Creatinine 1.3 (0.70-1.50) mg/dL BUN/Creatinine Ratio 25.38 H (6-20) Glucose 109 (78-110) mg/dL Calculated Osmolality 283.0 (267-292) mOsm/kg Lactic Acid 1.0 (0.70-2.10) MMOL/L Calcium 8.8 (8.7-10.7) mg/dL Total Bilirubin 0.5 (0.3-1.2) mg/dL AST 10 L (21-57) IU/L ALT 21 (21-72) IU/L Alkaline Phosphatase 94 (38-126) IU/L C-Reactive Protein 2.9 H (0.0-0.9) mg/dL Total Protein 7.7 (6.1-8.0) g/dL Albumin 4.1 (3.5-4.8) g/dL Globulin 3.6 (2.50-4.10) g/dL Albumin/Globulin Ratio 1.10 L (1.3-2.0) mg/g 10/03/17 10/03/17 Range/Units 04:25 04:25 WBC 12.05 H (4.8-10.8) 10^3/uL RBC 4.09 L (4.70-6.10) 10^6/uL Hgb 11.9 L (14.0-18.0) g/dL Hct 36.4 L (42.0-52.0) % MCV 89.0 (80-90) FL MCH 29.1 (27-31) PG MCHC 32.7 L (33-37) g/dL RDW Std Deviation 46.7 (39-50) fL RDW Coeff of Vu 14.6 H (11.5-14.5) % Plt Count 260 (140-350) 10*3/uL MPV 9.3 (7.4-12.2) FL Immature Gran % (Auto) 0.2 (0-5) % Neut % (Auto) 64.3 (50-80) % Lymph % (Auto) 24.2 (10-50) % [place] % (Auto) 7.6 (5-15) % Eos % (Auto) 3.1 (0-8) % Baso % (Auto) 0.6 (0-1) % Immature Gran # (Auto) 0.03 10*3/UL Neut # (Auto) 7.75 10*3/UL Lymph # (Auto) 2.92 10*3/uL [place] # (Auto) 0.91 H (0.3-0.8) 10*3/UL Eos # (Auto) 0.37 10*3/UL Baso # (Auto) 0.07 10*3/UL Neutrophils % (Manual) (50-80) % Band Neutrophils % (0-10) % Lymphocytes % (Manual) (10-50) % Monocytes % (Manual) (0-12) % Eosinophils % (Manual) (0-8) % Basophils % (Manual) (0-1) % Metamyelocytes % Myelocytes % Promyelocytes % Blast Cells WBC Morphology Comment Normal morphology (NORM) Plt Morphology Comment Normal morphology (NORM) RBC Morph Comment Normal morphology (NORM) Sodium 135 (135-145) meq/L Potassium 4.4 (3.8-5.2) meq/L Chloride 104 (98-112) meq/L Carbon Dioxide 21 L (23-33) meq/L Anion Gap 10 (5-20) BUN 31 H (7-22) mg/dL Creatinine 1.2 (0.70-1.50) mg/dL BUN/Creatinine Ratio 25.83 H (6-20) Glucose 87 (78-110) mg/dL Calculated Osmolality 285.0 (267-292) mOsm/kg Lactic Acid (0.70-2.10) MMOL/L Calcium 8.3 L (8.7-10.7) mg/dL Total Bilirubin 0.6 (0.3-1.2) mg/dL AST 7 L (21-57) IU/L ALT 19 L (21-72) IU/L Alkaline Phosphatase 77 (38-126) IU/L C-Reactive Protein (0.0-0.9) mg/dL Total Protein 6.4 (6.1-8.0) g/dL Albumin 3.2 L (3.5-4.8) g/dL Globulin 3.2 (2.50-4.10) g/dL Albumin/Globulin Ratio 1.00 L (1.3-2.0) mg/g Procedures: [address] [facility] [place] [address] PH: DD: [phone] FAX: [phone] ~DIAGNOSTIC IMAGING REPORT~ Patient: ALEXEI LUIS : 1945 Sex: M Age: 72 Exam Name: Scrotum Exam Date: 10/02/17 Report # : [id number] CPT Code: 78351 EMR/MR #: [id number] Ordering: KELLY REBOLLEDO Admiting: SUSHILA ARENAS MD. Primary: Paloma Haq MD Attending: SUSHILA ARENAS MD. Signed EXAM: US Scrotum CLINICAL HISTORY: Swelling, evaluate for abscess TECHNIQUE: Real-time ultrasound of the scrotum with color Doppler and image documentation. COMPARISON: 07/06/2017 FINDINGS: Right testicle: Unremarkable. Normal size, echogenicity, and vascular flow. No focal testicular lesion. Left testicle: Unremarkable. Normal size, echogenicity, and vascular flow. No focal testicular lesion. Epididymides: 8 mm complex right epididymal cyst. Scrotum: Nonspecific scrotal thickening to be seen in the setting of cellulitis. 1.5 cm irregular hypoechoic complex cystic structure in the posterior scrotum with peripheral hyperemia may represent an abscess, in the appropriate clinical setting. IMPRESSION: Nonspecific scrotal thickening can be seen in the setting of cellulitis. 1.5 cm suspected posterior scrotal abscess. Dictated By: Maria L Connor MD Signed By: 10/02/17 2330 Maria L Connor MD Patient Problems - Patient Problem List (1) Scrotal abscess Current Visit: Yes Status: Acute Code(s): N49.2 - Inflammatory disorders of scrotum Category: Medical (2) Diabetes mellitus, type 2 Current Visit: Yes Status: Chronic Qualifiers: Diabetes mellitus terminal carman insulin use: without care home use Diabetes mellitus complication status: without complication Qualified Code(s): E11.9 - Type 2 diabetes mellitus without complications Category: Medical (3) Hidradenitis suppurativa Current Visit: Yes Status: Chronic Priority: Low Code(s): L73.2 - Hidradenitis suppurativa Category: Medical (4) Benign essential hypertension Current Visit: No Status: Acute Onset Date: 09/30/12 Code(s): I10 - Essential (primary) hypertension Category: Medical (5) Tobacco dependence Current Visit: No Status: Chronic Onset Date: 03/08/16 Code(s): F17.200 - Nicotine dependence, unspecified, uncomplicated Category: Medical
[2017-10-03 13:08] VITALS: BP 111/72
== END 2017-10-03 13:42 | disposition short-term general hospital (02) | DRG 607 ==
LOC: ER 21:10 → MED/SURG 23:20
PROVIDERS: ADMIT Internal Medicine; ATTEND Internal Medicine